=== PATIENT | female | born 1945 | race Two or more races ===

== ENCOUNTER 2024-10-10 20:59 | Emergency (ER) | payer MEDICARE, BC ==
[~2024-10-10] VITALS: Ht 160 cm; Wt 36.3 kg
[2024-10-10 21:29] LABS: ABG BASE EXCESS -7.5 mmol/L (-2.0-3.0); ABG HCO3 16.6 mmol/L (21.0-28.0); ABG PCO2 29.1 mmHg (32.0-45.0); ABG PH 7.375 (7.350-7.450); ABG PO2 88.3 mmHg (83.0-108.0); ABG SITE RIGHT BRACHIAL; ABG TOTAL HEMOGLOBIN 10.2 G/dL (12.0-16.0); AaDO2 96.7 mmHg; COHb 1.1 % (0.5-1.5); MetHb 0.3 % (0.0-1.5); O2Hb 93.6 % (94.0-98.0)
[2024-10-10 21:45] LABS: DIFFERENTIAL COMMENT 0; MEAN CORPUSCULAR HGB CONC 30 g/dL (32.3-35.6)
[2024-10-10 21:54] LABS: CALCIUM 8.2 mg/dL (8.5-10.1); CARBON DIOXIDE 19 mmol/L (21-32); CHLORIDE 108 mmol/L (98-107); CREATININE 5.5 mg/dL (0.6-1.3); GLUCOSE 51 mg/dL (74-106); SODIUM SERUM 144 mmol/L (136-145)
[2024-10-10 21:56] LABS: BASOPHILS # (AUTO) 0.1 K/UL (0.0-0.2); BASOPHILS % (AUTO) 0.9 % (0.0-2.0); EOSINOPHILS % (AUTO) 0.2 % (0.0-7.0); ETHANOL < 3 MG/DL (0-10); HEMATOCRIT 33.3 % (31.2-41.9); LYMPHOCYTES # (AUTO) 0.6 K/uL (0.8-4.8); LYMPHOCYTES % (AUTO) 4.4 % (20.5-51.5); MEAN CORPUSCULAR HEMOGLOBIN 25.4 uug (24.7-32.8); MEAN CORPUSCULAR VOLUME 84.7 fL (75.5-95.3); MONOCYTES # (AUTO) 0.8 K/uL (0.1-1.30); MONOCYTES % (AUTO) 6.1 % (0.0-11.0); NEUTROPHILS # (AUTO) 11.4 K/uL (1.8-8.9); NEUTROPHILS % (AUTO) 88.4 % (38.5-71.5); PLATELET COUNT (AUTO) 72 K/uL (179-408); RED BLOOD CELL COUNT(AUTO) 3.93 MIL/uL (3.63-4.92); RED CELL DISTRIBUTION WIDTH 17.8 % (12.3-17.7); WHITE BLOOD COUNT (AUTO) 12.9 K/uL (3.8-11.8)
[2024-10-10 22:01] LABS: UREA NITROGEN, BLOOD 83 mg/dL (7-18)
[2024-10-10 22:03] LABS: ALANINE AMINOTRANSFERASE 30 U/L (14-59); ALBUMIN 2.3 g/dL (3.4-5.0); ALKALINE PHOSPHATASE 122 U/L (50-136); ASPARTATE AMINOTRANSFERASE 27 U/L (15-37); BILIRUBIN,DIRECT 0.2 mg/dL (0.0-0.2); BILIRUBIN,TOTAL 0.5 mg/dL (0.2-1.0); TOTAL PROTEIN, SERUM 5.9 g/dL (6.4-8.2)
[2024-10-10 22:07] LABS: ACETAMINOPHEN < 2.0 ug/mL (10-30); LACTIC ACID 2.7 mmol/L (0.4-2.0)
[2024-10-10] MEDS: IV NORMAL SALINE 1000 ML BAG IV ONE (22:30)
[2024-10-10 22:32] LABS: THYROID STIMULATING HORMONE 2.199 mIU/mL (0.358-3.740)
[2024-10-10 22:33] LABS: MAGNESIUM 1.4 mg/dL (1.8-2.4)
[2024-10-10] MEDS ORDERED: AZITHROMYCIN 500MG/ D5W 250ML IVPB **ER PYXIS ONLY IV ONE (22:59)
[2024-10-10 23:15] LABS: AMMONIA 20 umol/L (11-32)
[2024-10-10] MEDS: AZITHROMYCIN IV 500 MG in IV DEXTROSE 5% 250 ML IV ONE (23:30)
[2024-10-11 07:34] VITALS: BP 92/64; TEMP 98.1; O2SAT 96
== END 2024-10-11 02:00 | disposition left against medical advice (07) ==
LOC: ER 21:05
DX: J18.9 Pneumonia, unspecified organism (principal); R94.31 Abnormal electrocardiogram [ECG] [EKG]; E46 Unspecified protein-calorie malnutrition; J96.00 Acute respiratory failure, unspecified whether with hypoxia or hypercapnia; N18.6 End stage renal disease; Z68.1 Body mass index [BMI] 19.9 or less, adult
CPT/HCPCS: 80076; 80048; 82140; 83735; 84100; 84443; 85025; 87040 ×2; 84484 ×2; 36415; 71045; 82803; 93005; 99291; 96365; 83605; 80299; 80320; 80179; 36600 ×2; J0456; J7040; A4606; A4663; G0480